=== PATIENT | male | born 1980 | race American Indian/Alaskan Native ===

== ENCOUNTER 2022-03-18 16:19 | Emergency (ER) | payer SELFPAY ==
[~2022-03-18 16:19] MED LIST: EPINEPHrine 1 MG/10 ML SYRINGE ONE
--- NOTE | 2022-03-18 16:27 | Emergency Department Report ---
ED CPR HPI - General Stated Complaint: CARDIAC ARREST Time Seen by Provider: 03/18/22 16:21 Source: EMS Mode of arrival: Stretcher - History of Present Illness Initial Comments: Patient is a 41-year-old male brought in by EMS for cardiac arrest. He is was found down in his home with unknown amount of downtime. Initial rhythm was asystole per EMS. He remains in asystole on arrival. ED Review of Systems ROS: Stated complaint: CARDIAC ARREST Other details as noted in HPI Comment: Unobtainable due to pts medical conditions ED Physical Exam - General General appearance: other - Head Head exam: Present: atraumatic (Unresponsive), normocephalic - Eye Pupils: Present: other (Pupils dilated and fixed) - Respiratory Respiratory exam: Present: other (No spontaneous respirations. Patient being bagged.) - Cardiovascular Cardiovascular Exam: Present: other (No palpable pulses) - Neurological Exam Neurological exam: Present: other (GCS 3) - Skin Skin exam: Present: dry, intact, normal color ED Medical Decision Making - Medical Decision Making Patient with unknown downtime brought in for cardiac arrest. He was initially in asystole and remained so during the 20+ minute trip to the emergency department. On the next rhythm check he remains in asystole. Decision was made to discontinue any further resuscitative efforts. Patient . Critical care attestation.: If time is entered above; I have spent that time in minutes in the direct care of this critically ill patient, excluding procedure time. ED Disposition Clinical Impression: Cardiac arrest Disposition: 20 Is pt being admited?: No Condition: Stable
== END 2022-03-18 20:28 ==
LOC: ED 16:19
DX: I46.9 Cardiac arrest, cause unspecified (principal)
CPT/HCPCS: 92950; 99285; J0171